=== PATIENT | female | born 1955 | race African-American/Black ===

== ENCOUNTER 2019-07-03 17:22 | Inpatient (IN) | payer MEDICARE, MEDICAID ==
[~2019-07-03] VITALS: Ht 162.6 cm; Wt 91.2 kg
[2019-07-03 18:54] LABS: BASOPHILS % 0.6 % (0.0-2.0); EOSINOPHILS % 1.4 % (0.0-5.0); HEMATOCRIT. 31.4 % (36.0-48.0); HEMOGLOBIN. 10.2 g/dL (12.0-16.0); LYMPHOCYTES % 8.8 % (20.0-50.0); MEAN CORPUSCULAR VOLUME 80.2 fL (81.0-99.0); MEAN PLATELET VOLUME 8.7 fl (7.4-10.4); MONOCYTES % 4.9 % (2.0-8.0); NEUTROPHILS % 84.3 % (40.0-76.0); PLATELET 202 x1000/uL (130-400); RED BLOOD CELL COUNT 3.91 mill/uL (4.2-5.4); RED CELL DISTRIBUTION WIDTH 22.8 % (11.6-14.6)
[2019-07-03 18:56] LABS: CHLORIDE 95 mEq/L (98-107)
[2019-07-03] MEDS ORDERED: VANCOMYCIN 1 G PREMIX 200 ML IV SCH (19:30)
[2019-07-03] MEDS ORDERED: PIPERACILLIN/TAZ 3.375G PREMIX 50 ML IV ONE (19:30)
[2019-07-03 20:37] LABS: CREATINE KINASE 108 IU/L (26-192)
[2019-07-03] MEDS ORDERED: ASPIRIN 325MG TABLET PO ONE (21:00)
[2019-07-03 21:04] LABS: PLATELET ESTIMATE NORMAL
[2019-07-03] MEDS ORDERED: LORAZEPAM 2MG/ML CPJ IV PRN (22:00)
[2019-07-03] MEDS ORDERED: GUAIFENESIN 200MG/10ML SUGAR FREE UDC PO PRN (22:00)
[2019-07-03] MEDS ORDERED: DIPHENHYDRAMINE 50MG/ML VIAL IV PRN (22:00)
[2019-07-03] MEDS ORDERED: ONDANSETRON HCL 4MG/2ML INJ IV PRN (22:00)
[2019-07-03] MEDS ORDERED: IPRATROPIUM/ALBUTEROL 0.5-3(2.5)MG/3ML NEB NEB PRN (22:00)
[2019-07-03] MEDS ORDERED: ACETAMINOPHEN 325MG TABLET PO PRN (22:00)
[2019-07-03] MEDS ORDERED: HYDROCODONE/ACETAMINOPHEN 10/325MG TABLET PO PRN (22:00)
[2019-07-03] MEDS ORDERED: NA PHOS,M-B/NA PHOS,DI-BA ENEMA 118ML PR PRN (22:00)
[2019-07-03] MEDS ORDERED: DOCUSATE SODIUM 100MG CAPSULE PO PRN (22:00)
[2019-07-03] MEDS ORDERED: MAGNESIUM/ALUMINUM HYDROXIDE/SIMETHICONE 30ML UDC PO PRN (22:00)
[2019-07-03] MEDS ORDERED: DIPHENHYDRAMINE 50MG/ML VIAL IV ONE (22:15)
[2019-07-03] MEDS ORDERED: MORPHINE SULFATE 2 MG/ML CPJ (NOT FOR IM USE) IV PRN (22:44)
[2019-07-03 23:00] VITALS: BP 196/101
[2019-07-03] MEDS ORDERED: DEXT 5%/0.45% NACL 1000ML 1,000 ML IV SCH (23:00)
[2019-07-03] MEDS: CLONIDINE 0.1MG TABLET PO PRN (23:07)
[2019-07-04 04:00] VITALS: BP 189/78
[2019-07-04] MEDS: CLONIDINE 0.1MG TABLET PO PRN (05:47)
[2019-07-04 08:28] VITALS: BP 183/81
[2019-07-04] MEDS ORDERED: ASPIRIN 81MG EC TABLET PO SCH (09:00)
[2019-07-04] MEDS ORDERED: ENOXAPARIN 30MG/0.3ML SYR SUBCUT SCH (09:00)
[2019-07-04 10:18] LABS: BASOPHILS % 0.7 % (0.0-2.0); EOSINOPHILS % 2.9 % (0.0-5.0); HEMATOCRIT. 26.2 % (36.0-48.0); HEMOGLOBIN. 8.6 g/dL (12.0-16.0); LYMPHOCYTES % 19.2 % (20.0-50.0); MEAN CORPUSCULAR HEMOGLOBIN 26.5 pg (28.0-32.0); MEAN CORPUSCULAR VOLUME 80.8 fL (81.0-99.0); MEAN PLATELET VOLUME 8.4 fl (7.4-10.4); MONOCYTES % 6.4 % (2.0-8.0); NEUTROPHILS % 70.8 % (40.0-76.0); PLATELET 172 x1000/uL (130-400); RED BLOOD CELL COUNT 3.25 mill/uL (4.2-5.4); RED CELL DISTRIBUTION WIDTH 23.2 % (11.6-14.6)
[2019-07-04 10:23] LABS: CHLORIDE 93 mEq/L (98-107)
[2019-07-04 10:31] LABS: LDL CHOLESTEROL 36 mg/dL (5-100)
[2019-07-04 10:32] LABS: HDL CHOLESTEROL 64 mg/dL (40-59)
[2019-07-04 10:36] LABS: T4 FREE 0.91 ng/dL (0.76-1.46)
[2019-07-04] MEDS: BLOOD SUGAR DIAGNOSTIC STRIP TEST SCH ×2 (10:55→17:45)
[2019-07-04] MEDS ORDERED: FOLIC ACID/VITAMIN B COMP W-C TABLET PO SCH (11:00)
[2019-07-04 12:34] VITALS: BP 170/73
[2019-07-04] MEDS ORDERED: SEVELAMER CARBONATE 800 MG TABLET PO SCH (12:50)
[2019-07-04] MEDS ORDERED: INSULIN LISPRO 100 UNITS/ML SUBCUT SCH (12:50)
[2019-07-04] MEDS ORDERED: INSULIN GLARGINE UD 100 UNITS/ML SYR SUBCUT NR (13:00)
[2019-07-04 15:29] VITALS: BP 158/68
[2019-07-04 16:12] VITALS: BP 165/78
[2019-07-04 16:27] VITALS: BP 158/68
[2019-07-04] MEDS ORDERED: ASPI-1079 PO (16:48)
[2019-07-04] MEDS ORDERED: NEPVIT MT (16:48)
[2019-07-04] MEDS ORDERED: LANTUSUD SUBCUT (16:49)
[2019-07-04] MEDS ORDERED: SEVE800T8 PO (16:49)
[2019-07-04] MEDS ORDERED: LEVVL SQ (17:02)
[2019-07-05] MEDS ORDERED: INSULIN GLARGINE UD 100 UNITS/ML SYR SUBCUT SCH (10:00)
== END 2019-07-04 17:55 | disposition home or self-care (01) | DRG 70 ==
LOC: ER 17:22 → EDBD 17:22 → 6WST 21:04 → EDBEDREQTM 21:05 → EDBEDREQ 21:05 → ENRESERV 21:09
PROVIDERS: ADMIT Internal Medicine; ATTEND Internal Medicine
PROC: 5A1D70Z Performance of Urinary Filtration, Intermittent, Less than 6 Hours Per Day (ICD-10-PCS; principal; 2019-07-04)
DX: G93.41 Metabolic encephalopathy (principal); N18.6 End stage renal disease; E46 Unspecified protein-calorie malnutrition; I13.2 Hypertensive heart and chronic kidney disease with heart failure and with stage 5 chronic kidney disease, or end stage renal disease; E11.649 Type 2 diabetes mellitus with hypoglycemia without coma; E11.22 Type 2 diabetes mellitus with diabetic chronic kidney disease; E87.5 Hyperkalemia; E78.5 Hyperlipidemia, unspecified; I25.10 Atherosclerotic heart disease of native coronary artery without angina pectoris; T50.905A Adverse effect of unspecified drugs, medicaments and biological substances, initial encounter; I50.9 Heart failure, unspecified; I69.320 Aphasia following cerebral infarction; Z85.3 Personal history of malignant neoplasm of breast; Z90.10 Acquired absence of unspecified breast and nipple; Z99.2 Dependence on renal dialysis; Y92.89 Other specified places as the place of occurrence of the external cause; Z68.34 Body mass index [BMI] 34.0-34.9, adult
CPT/HCPCS: 36415; 71045; 80061; 82550; 82962; 83605; 84439; 84443; 84484; 93005; 96365; 99285; J1200; J1650; J1815; J2060; J2543; J3370